=== PATIENT | male | born 1965 | race Caucasian/White ===

== ENCOUNTER 2023-10-14 12:14 | Emergency (ER) | payer BC ==
[~2023-10-14] VITALS: Ht 175.3 cm; Wt 82.4 kg
[2023-10-14] MEDS ORDERED: ATOR1TAB19 PO (12:31)
[2023-10-14] MEDS ORDERED: PANT40TA29 PO (12:31)
[2023-10-14 15:24] VITALS: BP 155/84; TEMP 97.8; O2SAT 98
== END 2023-10-14 15:50 | disposition home or self-care (01) ==
LOC: M ED 12:14
DX: R09.A2 Foreign body sensation, throat (principal); K21.9 Gastro-esophageal reflux disease without esophagitis; E78.5 Hyperlipidemia, unspecified; Z88.0 Allergy status to penicillin; Z79.899 Other long term (current) drug therapy